=== PATIENT | male | born 1960 | race African-American/Black ===

== ENCOUNTER 2020-12-12 15:09 | Inpatient (IN) | payer OTHER ==
[2020-12-12 17:36] LABS: BASO % 0.2 % (0-2.0); EOS % 1.5 % (0-4.5); HEMATOCRIT 38.2 % (35.4-49); HEMOGLOBIN 12.4 GM/dL (11.7-16.9); LYMPH % 22.8 % (8-40); MCH 25.7 pg (25.7-33.7); MCHC 32.5 g/dl (32.0-35.9); MEAN CELL VOLUME 78.9 fl (80-96); MEAN PLT VOLUME 8.7 fl (7.5-11.1); NEUT % 66.5 % (42.8-82.8); PLATELET COUNT 223 K/MM3 (134-434); RBC 4.84 M/mm3 (4.00-5.60); RDW 14.6 % (11.9-15.9); WHITE BLOOD COUNT 4.3 K/mm3 (4.0-10.0)
[2020-12-12 17:56] LABS: CALCIUM 8.8 mg/dL (8.5-10.1)
[2020-12-12 17:57] LABS: ALBUMIN 2.6 g/dl (3.4-5.0); BLOOD UREA NITROGEN 22.8 mg/dL (7-18)
[2020-12-12 18:00] LABS: CREATININE 1.5 mg/dL (0.55-1.3); INR 1.12 (0.83-1.09); PROTHROMBIN TIME (PATIENT) 13.5 SEC (9.7-13.0)
[2020-12-12 18:01] LABS: BILIRUBIN,TOTAL 0.5 mg/dL (0.2-1)
[2020-12-12 18:02] LABS: ACTIVATED PTT 28.7 SECONDS (25.2-36.5); TOT PROT 6.2 g/dl (6.4-8.2)
[2020-12-12] MEDS ORDERED: LACTATED RINGERS SOLUTION 1000 ML INFUS.BAG IV ONE (19:07)
[2020-12-12 21:27] LABS: EPI CELLS 15 /uL (0-25.1); HYALINE CASTS 2 /uL (0-3.1); URINE APPEARANCE CLEAR; URINE BACTERIA >9,000 /uL (0-1359); URINE BILIRUBIN NEGATIVE (NEGATIVE); URINE COLOR YELLOW; URINE GLUCOSE (UA) 3+ (NEGATIVE); URINE KETONE NEGATIVE (NEGATIVE); URINE LEUK ESTERASE NEGATIVE (NEGATIVE); URINE NITRITE NEGATIVE (NEGATIVE); URINE PROTEIN 3+ (NEGATIVE); URINE RBC 16 /uL (0-23.9); URINE UROBILINOGEN 0.2 mg/dL (0.2-1.0)
[2020-12-12] MEDS ORDERED: ASPIRIN 81 MG CHEWABLE TABLETS PO ONE (21:45)
[2020-12-12] MEDS ORDERED: ASPIRIN 81 MG CHEWABLE TABLETS ONE (22:01)
[2020-12-12 22:05] LABS: URINE WBC 88.1 /uL (0-25.8)
[2020-12-12] MEDS ORDERED: ATORVASTATIN CA 10 MG TABLET (FP) PO ONE (23:08)
[2020-12-12] MEDS ORDERED: ATORVASTATIN CA 10 MG TABLET (FP) ONE (23:16)
[2020-12-13] MEDS ORDERED: PNEUMOC 13-VAL CONJ-DIP CRM/PF 0.5 ML DISP.SYRIN IM ONE (01:05)
[2020-12-13 01:06] VITALS: BMI 30.3
[2020-12-13 07:14] LABS: BASO % 0.6 % (0-2.0); EOS % 2.3 % (0-4.5); HEMATOCRIT 37.4 % (35.4-49); HEMOGLOBIN 12.2 GM/dL (11.7-16.9); LYMPH % 37.5 % (8-40); MCHC 32.6 g/dl (32.0-35.9); MEAN CELL VOLUME 79.7 fl (80-96); MONO % 10.5 % (3.8-10.2); NEUT % 49.1 % (42.8-82.8); PLATELET COUNT 204 K/MM3 (134-434); RBC 4.69 M/mm3 (4.00-5.60); RDW 14.9 % (11.9-15.9); WHITE BLOOD COUNT 4.1 K/mm3 (4.0-10.0)
[2020-12-13 07:29] LABS: ALBUMIN 2.5 g/dl (3.4-5.0); BLOOD UREA NITROGEN 20.1 mg/dL (7-18); CALCIUM 8.7 mg/dL (8.5-10.1); MAGNESIUM 2.2 mg/dL (1.8-2.4)
[2020-12-13 07:32] LABS: CREATININE 1.5 mg/dL (0.55-1.3)
[2020-12-13 07:34] LABS: BILIRUBIN,TOTAL 0.5 mg/dL (0.2-1); TOT PROT 6.2 g/dl (6.4-8.2)
[2020-12-13 07:44] LABS: N-TERMINAL BNP 552.9 pg/ml (5-125)
[2020-12-13] MEDS: ASPIRIN 81 MG CHEWABLE TABLETS PO SCH (09:48)
[2020-12-13] MEDS: TAMSULOSIN HCL 0.4 MG CAP PO SCH (09:48)
[2020-12-13] MEDS: CLOPIDOGREL BISULFATE 75 MG TABLET (FP) PO SCH (09:48)
[2020-12-13] MEDS ORDERED: PNEUMOCOCCAL 23 VACCINE 0.5 ML VIAL IM ONE (10:00)
[2020-12-13] MEDS: amLODIPine BESYLATE 5 MG TABLET (FP) PO SCH (11:04)
[2020-12-13] MEDS ORDERED: hydrALAZINE HCL 20 MG/ML VIAL ONE (14:56)
[2020-12-13] MEDS ORDERED: hydrALAZINE HCL 20 MG/ML VIAL IVPUSH ONE (15:15)
[2020-12-13] MEDS: SODIUM CHLORIDE 0.45% 1,000 ML IV SCH (17:06)
[2020-12-13] MEDS ORDERED: cefTRIAXone SODIUM 1 GM VIAL ONE (17:07)
[2020-12-13] MEDS ORDERED: DEXTROSE 5%-WATER - 50 ML IVPB ONE (17:08)
[2020-12-13] MEDS: CEFTRIAXONE 1 GM in DEXTROSE 5%-WATER - 50 ML IVPB SCH (17:24)
[2020-12-13 18:35] LABS: EPI CELLS 1 /uL (0-25.1); HYALINE CASTS 1 /uL (0-3.1); PH,URINE 6.5 (5.0-8.0); URINE APPEARANCE CLOUDY; URINE BACTERIA >9,000 /uL (0-1359); URINE BILIRUBIN NEGATIVE (NEGATIVE); URINE COLOR YELLOW; URINE GLUCOSE (UA) 3+ (NEGATIVE); URINE KETONE TRACE (NEGATIVE); URINE LEUK ESTERASE NEGATIVE (NEGATIVE); URINE NITRITE NEGATIVE (NEGATIVE); URINE PROTEIN 3+ (NEGATIVE); URINE RBC 44 /uL (0-23.9)
[2020-12-13] MEDS: METOPROLOL TARTRATE 5 MG/5 ML VIAL IVPB PRN (18:46)
[2020-12-13] MEDS: ATORVASTATIN CA 10 MG TABLET (FP) PO SCH (21:58)
[2020-12-13 23:25] LABS: URINE WBC 598.3 /uL (0-25.8)
[2020-12-14] MEDS: METOPROLOL TARTRATE 5 MG/5 ML VIAL IVPB PRN (03:14)
[2020-12-14 07:14] LABS: HEMATOCRIT 36.9 % (35.4-49); HEMOGLOBIN 12.2 GM/dL (11.7-16.9); MCHC 33.1 g/dl (32.0-35.9); MEAN CELL VOLUME 78.7 fl (80-96); MEAN PLT VOLUME 8.8 fl (7.5-11.1); PLATELET COUNT 229 K/MM3 (134-434); RBC 4.69 M/mm3 (4.00-5.60); RDW 14.7 % (11.9-15.9); WHITE BLOOD COUNT 4.1 K/mm3 (4.0-10.0)
[2020-12-14 07:21] LABS: BLOOD UREA NITROGEN 18.6 mg/dL (7-18); CALCIUM 9.1 mg/dL (8.5-10.1); MAGNESIUM 2.1 mg/dL (1.8-2.4)
[2020-12-14 07:24] LABS: CREATININE 1.4 mg/dL (0.55-1.3)
[2020-12-14] MEDS ORDERED: DEXTROSE 5%-WATER - 50 ML IVPB ONE (08:56)
[2020-12-14] MEDS ORDERED: cefTRIAXone SODIUM 1 GM VIAL ONE (08:56)
[2020-12-14] MEDS: ASPIRIN 81 MG CHEWABLE TABLETS PO SCH (10:04)
[2020-12-14] MEDS: CLOPIDOGREL BISULFATE 75 MG TABLET (FP) PO SCH (10:04)
[2020-12-14] MEDS: TAMSULOSIN HCL 0.4 MG CAP PO SCH (10:04)
[2020-12-14] MEDS: amLODIPine BESYLATE 5 MG TABLET (FP) PO SCH (10:04)
[2020-12-14] MEDS: CEFTRIAXONE 1 GM in DEXTROSE 5%-WATER - 50 ML IVPB SCH (10:06)
[2020-12-14] MEDS: METHIMAZOLE 5 MG TABLET (FP) PO SCH (13:50)
[2020-12-14] MEDS: VALSARTAN 40 MG TABLET PO SCH (18:17)
[2020-12-14] MEDS: SODIUM CHLORIDE 0.45% 1,000 ML IV SCH (18:21)
[2020-12-14] MEDS: ATORVASTATIN CA 10 MG TABLET (FP) PO SCH (21:27)
[2020-12-15] MEDS: INSULIN SLIDING SCALE (NOVOLOG) 1 VIAL SQ SCH ×3 (06:15→16:25)
[2020-12-15 07:01] LABS: ALBUMIN 2.6 g/dl (3.4-5.0); BLOOD UREA NITROGEN 18.9 mg/dL (7-18); CALCIUM 8.7 mg/dL (8.5-10.1)
[2020-12-15 07:03] LABS: CHOLESTEROL 206 mg/dL (50-200); TRIGLYCERIDES 118 mg/dL (0-150)
[2020-12-15 07:04] LABS: CREATININE 1.4 mg/dL (0.55-1.3)
[2020-12-15 07:05] LABS: LDL CHOLESTEROL (ONLY SJRH) 125 mg/dL (5-100)
[2020-12-15 07:06] LABS: BILIRUBIN,TOTAL 0.9 mg/dL (0.2-1); HDL CHOLESTEROL 35 mg/dL (40-60); TOT PROT 6.3 g/dl (6.4-8.2)
[2020-12-15] MEDS ORDERED: cefTRIAXone SODIUM 1 GM VIAL ONE (08:42)
[2020-12-15] MEDS ORDERED: DEXTROSE 5%-WATER - 50 ML IVPB ONE (08:42)
[2020-12-15] MEDS: amLODIPine BESYLATE 5 MG TABLET (FP) PO SCH ×2 (08:55→11:45)
[2020-12-15] MEDS: TAMSULOSIN HCL 0.4 MG CAP PO SCH (08:56)
[2020-12-15] MEDS: ASPIRIN 81 MG CHEWABLE TABLETS PO SCH ×2 (08:56→11:42)
[2020-12-15] MEDS: CLOPIDOGREL BISULFATE 75 MG TABLET (FP) PO SCH ×2 (08:56→11:42)
[2020-12-15] MEDS: VALSARTAN 40 MG TABLET PO SCH ×2 (08:57→11:42)
[2020-12-15] MEDS: CEFTRIAXONE 1 GM in DEXTROSE 5%-WATER - 50 ML IVPB SCH (10:22)
[2020-12-15] MEDS: METHIMAZOLE 5 MG TABLET (FP) PO SCH (10:23)
[2020-12-15] MEDS ORDERED: CYANOCOBALAMIN (VITAMIN B-12) 1000 MCG/1 ML VIAL IM ONE (10:58)
[2020-12-15] MEDS: INSULIN (LEVEMIR) 100 UNITS/ML UNITS SQ SCH ×2 (11:58→21:12)
[2020-12-15] MEDS: METOPROLOL TARTRATE 5 MG/5 ML VIAL IVPB PRN (14:03)
[2020-12-15] MEDS ORDERED: amLODIPine BESYLATE 5 MG TABLET (FP) PO ONE (14:40)
[2020-12-15] MEDS ORDERED: ATORVASTATIN CA 20 MG TABLET (FP) PO ONE (21:08)
[2020-12-15] MEDS: ATORVASTATIN CA 10 MG TABLET (FP) PO SCH (21:11)
[2020-12-15] MEDS: SODIUM CHLORIDE 0.45% 1,000 ML IV SCH (21:13)
[2020-12-16] MEDS: METOPROLOL TARTRATE 5 MG/5 ML VIAL IVPB PRN ×2 (05:40→18:18)
[2020-12-16] MEDS: INSULIN SLIDING SCALE (NOVOLOG) 1 VIAL SQ SCH ×3 (06:15→16:30)
[2020-12-16] MEDS ORDERED: cefTRIAXone SODIUM 1 GM VIAL ONE (09:21)
[2020-12-16] MEDS ORDERED: DEXTROSE 5%-WATER - 50 ML IVPB ONE (09:21)
[2020-12-16] MEDS: CYANOCOBALAMIN 1,000 MCG TABLET (FP) PO SCH (09:43)
[2020-12-16] MEDS: ASPIRIN 81 MG CHEWABLE TABLETS PO SCH (09:43)
[2020-12-16] MEDS: TAMSULOSIN HCL 0.4 MG CAP PO SCH (09:43)
[2020-12-16] MEDS: amLODIPine BESYLATE 5 MG TABLET (FP) PO SCH (09:43)
[2020-12-16] MEDS: CLOPIDOGREL BISULFATE 75 MG TABLET (FP) PO SCH (09:43)
[2020-12-16] MEDS: VALSARTAN 40 MG TABLET PO SCH (09:44)
[2020-12-16] MEDS: CEFTRIAXONE 1 GM in DEXTROSE 5%-WATER - 50 ML IVPB SCH (09:44)
[2020-12-16] MEDS: INSULIN (LEVEMIR) 100 UNITS/ML UNITS SQ SCH ×2 (09:44→21:56)
[2020-12-16] MEDS: METHIMAZOLE 5 MG TABLET (FP) PO SCH (09:45)
[2020-12-16] MEDS: SODIUM CHLORIDE 0.45% 1,000 ML IV SCH (14:50)
[2020-12-16 16:36] LABS: ALBUMIN 2.4 g/dl (3.4-5.0); BILIRUBIN,TOTAL 0.3 mg/dL (0.2-1); BLOOD UREA NITROGEN 15.9 mg/dL (7-18); CALCIUM 8.5 mg/dL (8.5-10.1); CREATININE 1.3 mg/dL (0.55-1.3); TOT PROT 6.2 g/dl (6.4-8.2)
[2020-12-16] MEDS: ATORVASTATIN CA 10 MG TABLET (FP) PO SCH (21:56)
[2020-12-17] MEDS: INSULIN SLIDING SCALE (NOVOLOG) 1 VIAL SQ SCH ×3 (06:09→16:50)
[2020-12-17] MEDS: CEFUROXIME AXETIL 500 MG TABLET PO SCH ×2 (09:15→21:39)
[2020-12-17] MEDS: amLODIPine BESYLATE 5 MG TABLET (FP) PO SCH (09:16)
[2020-12-17] MEDS: ASPIRIN 81 MG CHEWABLE TABLETS PO SCH (09:16)
[2020-12-17] MEDS: VALSARTAN 40 MG TABLET PO SCH (09:16)
[2020-12-17] MEDS: TAMSULOSIN HCL 0.4 MG CAP PO SCH (09:17)
[2020-12-17] MEDS: METHIMAZOLE 5 MG TABLET (FP) PO SCH (09:17)
[2020-12-17] MEDS: CYANOCOBALAMIN 1,000 MCG TABLET (FP) PO SCH (09:17)
[2020-12-17] MEDS: METOPROLOL TARTRATE 5 MG/5 ML VIAL IVPB PRN (09:17)
[2020-12-17] MEDS: CLOPIDOGREL BISULFATE 75 MG TABLET (FP) PO SCH (09:17)
[2020-12-17] MEDS: INSULIN (LEVEMIR) 100 UNITS/ML UNITS SQ SCH ×2 (09:17→21:39)
[2020-12-17] MEDS ORDERED: VALSARTAN 80 MG TABLET PO ONE (11:15)
[2020-12-17] MEDS: SODIUM CHLORIDE 0.45% 1,000 ML IV SCH (18:53)
[2020-12-17] MEDS ORDERED: PT OWN MED DRAWER 7, Y5N ONE (21:18)
[2020-12-17] MEDS: ATORVASTATIN CA 10 MG TABLET (FP) PO SCH (21:39)
[2020-12-18] MEDS ORDERED: hydrALAZINE HCL 25 MG TABLET (FP) PO ONE (01:15)
[2020-12-18] MEDS: INSULIN SLIDING SCALE (NOVOLOG) 1 VIAL SQ SCH ×3 (06:35→17:06)
[2020-12-18] MEDS ORDERED: PT OWN MED DRAWER 7, Y5N ONE ×3 (09:54→21:39)
[2020-12-18] MEDS: CYANOCOBALAMIN 1,000 MCG TABLET (FP) PO SCH (09:56)
[2020-12-18] MEDS: VALSARTAN 160 MG TABLET PO SCH (09:56)
[2020-12-18] MEDS: ASPIRIN 81 MG CHEWABLE TABLETS PO SCH (09:56)
[2020-12-18] MEDS: TAMSULOSIN HCL 0.4 MG CAP PO SCH (09:57)
[2020-12-18] MEDS: amLODIPine BESYLATE 5 MG TABLET (FP) PO SCH (09:57)
[2020-12-18] MEDS: CEFUROXIME AXETIL 500 MG TABLET PO SCH ×2 (09:57→21:40)
[2020-12-18] MEDS: INSULIN (LEVEMIR) 100 UNITS/ML UNITS SQ SCH ×2 (09:57→21:43)
[2020-12-18] MEDS: METHIMAZOLE 5 MG TABLET (FP) PO SCH (09:57)
[2020-12-18] MEDS: CLOPIDOGREL BISULFATE 75 MG TABLET (FP) PO SCH (09:57)
[2020-12-18] MEDS: ATORVASTATIN CA 10 MG TABLET (FP) PO SCH (21:40)
[2020-12-19] MEDS: INSULIN SLIDING SCALE (NOVOLOG) 1 VIAL SQ SCH ×3 (06:26→17:47)
[2020-12-19] MEDS: TAMSULOSIN HCL 0.4 MG CAP PO SCH (08:43)
[2020-12-19 08:49] LABS: BLOOD UREA NITROGEN 18.5 mg/dL (7-18); CALCIUM 9.2 mg/dL (8.5-10.1)
[2020-12-19 08:52] LABS: CREATININE 1.3 mg/dL (0.55-1.3)
[2020-12-19] MEDS ORDERED: PT OWN MED DRAWER 7, Y5N ONE ×2 (09:17→20:35)
[2020-12-19] MEDS: CEFUROXIME AXETIL 500 MG TABLET PO SCH ×2 (09:43→21:28)
[2020-12-19] MEDS: VALSARTAN 160 MG TABLET PO SCH (09:43)
[2020-12-19] MEDS: ASPIRIN 81 MG CHEWABLE TABLETS PO SCH (09:43)
[2020-12-19] MEDS: INSULIN (LEVEMIR) 100 UNITS/ML UNITS SQ SCH ×2 (09:43→21:28)
[2020-12-19] MEDS: CLOPIDOGREL BISULFATE 75 MG TABLET (FP) PO SCH (09:44)
[2020-12-19] MEDS: METHIMAZOLE 5 MG TABLET (FP) PO SCH (09:44)
[2020-12-19] MEDS: amLODIPine BESYLATE 5 MG TABLET (FP) PO SCH (09:44)
[2020-12-19] MEDS: CYANOCOBALAMIN 1,000 MCG TABLET (FP) PO SCH (09:45)
[2020-12-19] MEDS ORDERED: VALSARTAN 160 MG TABLET PO SCH (10:14)
[2020-12-19] MEDS ORDERED: VALSARTAN 160 MG TABLET PO ONE (10:16)
[2020-12-19] MEDS: ATORVASTATIN CA 10 MG TABLET (FP) PO SCH (21:28)
[2020-12-20] MEDS: INSULIN SLIDING SCALE (NOVOLOG) 1 VIAL SQ SCH ×3 (06:27→17:27)
[2020-12-20 08:45] LABS: CALCIUM 9.2 mg/dL (8.5-10.1)
[2020-12-20 08:46] LABS: CREATININE 1.3 mg/dL (0.55-1.3)
[2020-12-20] MEDS: TAMSULOSIN HCL 0.4 MG CAP PO SCH (08:52)
[2020-12-20] MEDS ORDERED: PT OWN MED DRAWER 7, Y5N ONE ×3 (09:39→21:27)
[2020-12-20] MEDS: ASPIRIN 81 MG CHEWABLE TABLETS PO SCH (09:41)
[2020-12-20] MEDS: CYANOCOBALAMIN 1,000 MCG TABLET (FP) PO SCH (09:42)
[2020-12-20] MEDS: VALSARTAN 160 MG TABLET PO SCH (09:42)
[2020-12-20] MEDS: INSULIN (LEVEMIR) 100 UNITS/ML UNITS SQ SCH ×2 (09:42→21:50)
[2020-12-20] MEDS: CLOPIDOGREL BISULFATE 75 MG TABLET (FP) PO SCH (09:42)
[2020-12-20] MEDS: amLODIPine BESYLATE 5 MG TABLET (FP) PO SCH (09:42)
[2020-12-20] MEDS: CEFUROXIME AXETIL 500 MG TABLET PO SCH ×2 (09:44→21:47)
[2020-12-20] MEDS: METHIMAZOLE 5 MG TABLET (FP) PO SCH (09:45)
[2020-12-20] MEDS ORDERED: INSULIN (NOVOLOG) ASPART 100 UNITS/ML 10ML VIAL ONE (21:28)
[2020-12-20] MEDS: ATORVASTATIN CA 10 MG TABLET (FP) PO SCH (21:48)
[2020-12-21] MEDS: INSULIN SLIDING SCALE (NOVOLOG) 1 VIAL SQ SCH ×3 (06:16→16:31)
[2020-12-21 08:19] LABS: BLOOD UREA NITROGEN 21.1 mg/dL (7-18); CALCIUM 8.8 mg/dL (8.5-10.1)
[2020-12-21 08:23] LABS: CREATININE 1.3 mg/dL (0.55-1.3)
[2020-12-21] MEDS ORDERED: PT OWN MED DRAWER 7, Y5N ONE ×3 (08:46→21:37)
[2020-12-21] MEDS: POLYETHYLENE GLYCOL 3350 119 GM BTL PO SCH (09:01)
[2020-12-21] MEDS: amLODIPine BESYLATE 5 MG TABLET (FP) PO SCH (09:03)
[2020-12-21] MEDS: CYANOCOBALAMIN 1,000 MCG TABLET (FP) PO SCH (09:03)
[2020-12-21] MEDS: CLOPIDOGREL BISULFATE 75 MG TABLET (FP) PO SCH (09:03)
[2020-12-21] MEDS: TAMSULOSIN HCL 0.4 MG CAP PO SCH (09:04)
[2020-12-21] MEDS: ASPIRIN 81 MG CHEWABLE TABLETS PO SCH (09:04)
[2020-12-21] MEDS: VALSARTAN 160 MG TABLET PO SCH (09:04)
[2020-12-21] MEDS: CEFUROXIME AXETIL 500 MG TABLET PO SCH ×2 (09:04→22:21)
[2020-12-21] MEDS: INSULIN (LEVEMIR) 100 UNITS/ML UNITS SQ SCH ×2 (09:05→22:21)
[2020-12-21] MEDS: ATORVASTATIN CA 10 MG TABLET (FP) PO SCH (22:20)
[2020-12-22] MEDS: INSULIN SLIDING SCALE (NOVOLOG) 1 VIAL SQ SCH ×2 (07:00→12:18)
[2020-12-22] MEDS: TAMSULOSIN HCL 0.4 MG CAP PO SCH (09:05)
[2020-12-22 09:29] VITALS: BP 166/92; PULSE 69; TEMP 98.2
[2020-12-22] MEDS: ASPIRIN 81 MG CHEWABLE TABLETS PO SCH (09:36)
[2020-12-22] MEDS: VALSARTAN 160 MG TABLET PO SCH (09:37)
[2020-12-22] MEDS: amLODIPine BESYLATE 5 MG TABLET (FP) PO SCH (09:38)
[2020-12-22] MEDS: POLYETHYLENE GLYCOL 3350 119 GM BTL PO SCH (09:38)
[2020-12-22] MEDS: CYANOCOBALAMIN 1,000 MCG TABLET (FP) PO SCH (09:39)
[2020-12-22] MEDS: CLOPIDOGREL BISULFATE 75 MG TABLET (FP) PO SCH (09:39)
[2020-12-22] MEDS: CEFUROXIME AXETIL 500 MG TABLET PO SCH (09:45)
[2020-12-22] MEDS: INSULIN (LEVEMIR) 100 UNITS/ML UNITS SQ SCH (09:46)
== END 2020-12-22 15:28 | DRG 64 ==
LOC: JER 15:09 → JERBED 21:55 → J4W 12-13 00:03
PROVIDERS: ADMIT Hospitalist; ATTEND Family Medicine
DX: I63.9 Cerebral infarction, unspecified (principal); I21.4 Non-ST elevation (NSTEMI) myocardial infarction; N39.0 Urinary tract infection, site not specified; I10 Essential (primary) hypertension; I25.10 Atherosclerotic heart disease of native coronary artery without angina pectoris; E11.9 Type 2 diabetes mellitus without complications; E05.90 Thyrotoxicosis, unspecified without thyrotoxic crisis or storm; I50.9 Heart failure, unspecified; N18.9 Chronic kidney disease, unspecified; Z95.1 Presence of aortocoronary bypass graft; R26.81 Unsteadiness on feet; R31.9 Hematuria, unspecified; E66.9 Obesity, unspecified; Z68.30 Body mass index [BMI] 30.0-30.9, adult
CPT/HCPCS: 36415; 70450-TC; 70551-TC; 71046-TC-FY; 76775-TC; 80048; 80053; 80061; 81003; 82550; 82553; 82570; 82607; 82962; 83036; 83721; 83735; 83880; 84156; 84300; 84439; 84443; 84480; 84484; 85025; 85027; 85610; 85730; 86038; 86780; 86803; 87086; 87186; 87340; 90732; 93005; 93010; 93306-TC; 93880-TC; 97116-GP; 97161-GP; 99285-25; C9803; G0009; U0003; U0005